=== PATIENT | male | born 1970 | race Caucasian/White ===

== ENCOUNTER 2024-10-26 20:03 | Emergency (ER) | payer BC, SELFPAY ==
[2024-10-26 20:05] VITALS: BP 155/104
[2024-10-26] MEDS: TYLENOL 650 MG PO (21:38)
[2024-10-26] MEDS: AUGMENTIN 875 MG/125 MG 1 TABLET PO (21:38)
[2024-10-26] MEDS: ADACEL 0.5 ML IM (21:40)
[2024-10-26 22:33] VITALS: BP 147/83
--- NOTE | 2024-10-26 23:22 | ED.SKININJ ---
HPI-Injury
General
Chief Complaint: Bite
Source: patient
Exam Limitations: none
Time Seen by Provider: 10/26/24 21:16
Nursing documentation reviewed up to this point in time: agreed with
History of Present Illness-Injury
Initial Injury comments:
Patient is a 54-year-old male who presents to the emergency department for evaluation after he sustained multiple dog bites/scratches earlier this evening. Patient states that he was walking both of his dogs when one of them became 'spooked' and
began attacking him. He states that one of them grabbed a hold of his left bicep and his left chest. He fortunately was able to free his arm. He also sustained a minor laceration to his right upper arm. Patient reports significant
swelling/bruising on his chest/left upper arm. He initially was going to treat the wound at home however was urged to come to the emergency department due to 1 left elbow which was quite large.
The bleeding has slowed down quite significantly since initial injury.
Patient denies any numbness/tingling in left forearm, fingers. He denies any weakness in left upper or right upper extremity. No chest pain or shortness of breath.
He is unsure when his last tetanus vaccine was.
Review of Systems
Review of Systems
Allergies reviewed?: Yes
All Other Systems: ROS reviewed and negative except as documented in HPI and ROS
Phy Exam
Physical Exam
Physical Exam:
Vitals: Hypertensive, otherwise vital signs stable. Afebrile
General: Patient is in no distress
Skin: Approximately 2 cm gaping laceration just superior to left antecubital fossa. Scattered, more superficial lacerations of left upper arm, as well as 1 puncture wound on left lateral upper arm. Significant swelling with multiple contusions
surrounding lacerations. 1 superficial laceration to right upper arm with mild contusion. Abrasion noted to left upper chest with surrounding contusion.
Head: Normocephalic, atraumatic
Eyes: Sclera nonicteric.
Throat: Protecting airway
Neck: Normal ROM, no cervical spine tenderness, no meningismus
Cardiac: Regular rate and rhythm, no murmurs. Contusion noted to left upper chest wall with minor abrasion
Pulm: Normal respiratory effort, no wheezes, rales, rhonchi heard on exam
Abdomen: No abdominal tenderness.
Extremities: Lacerations, abrasions, and contusions as above. Bilateral upper extremities neurovascularly intact with 2+ palpable brachial and radial pulses. Normal capillary refill and sensation. Full range of motion of all joints in bilateral
upper extremities. Compartments soft.
Neuro: AAOx3. Grossly intact.
Psychiatric: Normal affect.
Course
Orders/Labs/Results
Orders:
Orders
10/26/24 21:27
Acetaminophen [Tylenol] 650 mg PO NOW STA
Amoxicillin 875 mg/Clav 125 mg [Augmentin 875 mg/125 mg] 1 tablet PO NOW STA
Tetanus/Diphth/Acelpertussis [Adacel] 0.5 ml IM .ONCE ONE
Elbow, 3 view, Left [CR Elbow - Left Min 3 Views ] Urgent
Comment:
Reason For Exam: dog bite
Vital Signs
Initial and Last Documented VS:
Initial Vital Signs
Temp Pulse Resp BP Pulse Ox
98.2 F 100 16 155/104 96
10/26/24 20:05 10/26/24 20:05 10/26/24 20:05 10/26/24 20:05 10/26/24 20:05
Last Documented Vital Signs
Temp Pulse Resp BP Pulse Ox
98.2 F 100 16 147/83 96
10/26/24 20:05 10/26/24 20:05 10/26/24 20:05 10/26/24 22:33 10/26/24 23:25
Procedures
Laceration Closure
Left Arm:
Status of Wound: clean
Size of Wound in cm: 2
Description of Wound Edges: sharp
Preparation: cleaned with saline and cleaned with Betadine
Anesthesia: 1% Lidocaine with epi
Revision/Debridement: routine- no revision
Wound exploration: explored to base- no FB
Type of Closure: interrupted sutures
Skin Closure Material: 4-0 nylon
Number of sutures: 2
MDM/Problems Addressed
Differential Diagnosis Includes:
Not limited to: Laceration, dog bite, contusion, puncture wound, etc.
MDM/Problems Addressed:
54-year-old male presenting after sustaining multiple dog bites of his own dogs this evening while taking them for a walk. Presents with numerous lacerations along with pain/significant swelling and ecchymoses of left upper extremity. Patient's
dog is fully up-to-date with vaccinations. He is unsure of his last tetanus shot.
Vitals and physical exam as above. Numerous lacerations and abrasions with surrounding contusions and ecchymoses most significant of left upper arm, however also area on left chest wall as well as right upper extremity. Bilateral upper extremities
are neurovascular intact with soft compartments. Case discussed with physician.
Discussed plan for wound management with patient at length. Will allow majority of lacerations to heal via secondary intention with concern for infection. However will place a few loose sutures and gaping wound near left antecubital fossa to
loosely approximate skin edges. I did obtain an x-ray of the left elbow without any evidence of fracture or retained foreign body.
Verbal consent obtained by patient. Very thorough irrigation of all lacerations with normal saline of bilateral upper extremities and chest wall. Gaping wound was anesthetized with 1% lidocaine with epinephrine and very loosely closed with two 4-0
nylon simple interrupted sutures. Wound edges somewhat approximated however very loosely. Nonstick dressing and Papa wrap applied by lead maintenance technician.
Patient did receive Tdap booster in ED as well as first dose of antibiotic. Return precautions discussed at length including any signs of infection or compartment syndrome. Wound care instructions discussed as well and advise light compression,
ice, Tylenol/Motrin. Sutures will require removal in 7 days. Prescription sent for course of antibiotics. Strict return precautions discussed. Patient stable for discharge home.
Chronic conditions affecting care:
N/A
Acute Exacerbation and/or Progression of Chronic Illness:
N/A
*Radiology
Radiology exam reviewed: preliminary read by ED provider (Elbow x-ray reviewed by me-no acute abnormality) and radiology read reviewed
*Pulse Oximetry
SaO2: 96
Oxygen Mode of Delivery: Room air
Patient hypoxic: no
*EKG
Interpreted by ED Provider?: NA
*Suction Plate Carrier Cleaner Interpretation
Rate: Suction Plate Carrier Cleaner- N/A
*Critical Care Note
Total Time (30-74mins, 75-104mins- exclusive of procedures): Not Applicable
ED Attending Note
-
Portions of this chart may have been created with voice recognition software.� Occasional wrong word or��sound alike� substitutions may have occurred due to the inherent limitations of voice recognition software.
Discharge Plan
Departure
Patient Disposition: Home (Routine Discharge)
Date of Disposition: 10/26/24
Time of Disposition: 22:18
Patient with high blood pressure during this ER visit?: Yes
Condition: Good
Covid-19: Not Applicable
Discharge Problem:
Dog bite of multiple sites of left upper arm, Contusion of arm, left, multiple sites
Instructions: Animal Bites (DC), Wound Care (DC), Laceration Repair With Stitches (DC), BLOOD PRESSURE
Prescriptions:
New
amoxicillin-pot clavulanate 875-125 mg tablet
1 tab PO BID 5 Days Qty: 10 0RF
Referrals:
NONE,* [Family Provider, Internal Medicine]
Activity Restrictions/Additional Instructions:
RETURN TO THE EMERGENCY DEPARTMENT ANY SIGNS OF INFECTION INCLUDING FEVER, SIGNIFICANT REDNESS SWELLING, PAIN AROUND WOUNDS, PUS DRAINING FROM WOUND, RED STREAKING FROM WOUND, WORSENING SWELLING OR BRUISING OF LEFT UPPER EXTREMITY, NUMBNESS/TINGLING
IN LEFT UPPER EXTREMITY, WORSENING OF CURRENT SYMPTOMS, OR ANY OTHER CONCERNS
- As discussed�the x-ray of your left arm showed no acute abnormalities.
- All of your wounds were irrigated thoroughly with normal saline. 1 laceration was closed with 2 sutures. These will need to be removed in 7 to 10 days. You can have this done in urgent care primary care or emergency department. Please keep
wounds clean and dry. Keep covered while lacerations heal. Monitor very closely for any signs of infection
-A prescription for antibiotic has been sent to your pharmacy which you should take twice a day for the next 5 days.
- You should apply ice to upper arm and apply light compression to help with bruising. Please return with any significant pain, swelling, or numbness/tingling in left arm
MONITOR VERY CLOSELY FOR SIGNS OF INFECTION AND RETURN PROMPTLY WITH ANY CONCERN
Interventions
Interventions:
*Risk Screen - Suicide Last Done: 10/26/24 20:10
*General Assessment Last Done: 10/26/24 20:10
*Neglect/Abuse Screening Last Done: 10/26/24 20:10
*ED- Fall Risk Assessment Last Done: 10/26/24 20:10
*ED COVID-19 Vaccine History Last Done: 10/26/24 20:10
*Nursing Disposition Last Done: 10/26/24 22:33
ED-Skin Assessment Last Done: 10/26/24 21:24
Discharge Date and Time
Discharge Date/Time: 10/26/24 22:34
Print Language: FRISIAN
== END 2024-10-26 22:34 | disposition home or self-care (01) ==
LOC: EMR 20:03
PROVIDERS: EMERGENCY PHYSICIAN Student in an Organized Health Care Education/Training Program
DX: S51.052A Open bite, left elbow, initial encounter (principal); S40.022A Contusion of left upper arm, initial encounter; R03.0 Elevated blood-pressure reading, without diagnosis of hypertension; Z23 Encounter for immunization; W54.0XXA Bitten by dog, initial encounter; Y93.K1 Activity, walking an animal
CPT/HCPCS: 99283; 12001; 90471; 73080; 90715